=== PATIENT | female | born 1945 | race Caucasian/White ===

== ENCOUNTER 2019-02-21 11:10 | Emergency (ER) | payer MEDICARE, OTHER, SELFPAY ==
[2019-02-21 11:12] VITALS: BP 182/116; PULSE 127; RESP 18; TEMP 36.9; O2SAT 93; BMI 33.3
--- NOTE | 2019-02-21 11:27 | ED.VIS.GEN ---
History of Present Illness Chief Complaint: Lower Extremity Injury Informant: Patient Onset: Today Current Severity: Moderate Maximum Severity: Moderate Narrative: Patient presents after fall at home injuring her right ankle. She states that she was walking the living room when she rolled her right ankle and fell. Air splint was placed by EMS. She denies any other injury from her fall. - Past Medical History (1) Scoliosis Status: Chronic Past Medical History - Allergies and Home Meds Allergies/Adverse Reactions: Allergies ciprofloxacin [From Cipro] Allergy (Verified 02/21/19 11:11) Hives Primary Care Physician: Herve Urrutia [Primary Care Provider] - Review of Systems General: Denies: Chills, Fever Eyes: Denies: Visual changes - bilaterally ENT: Denies: Bilateral ear pain Cardiovascular: Denies: Chest pain Respiratory: Denies: Dyspnea Gastrointestinal: Denies: Abdominal pain Musculoskeletal: Reports: Swelling, Extremity Pain Skin: Denies: Rash, Wounds Allergy: Denies: Uticaria Physical Exam Vital Signs/Narrative: Vital Signs Temp Pulse Resp BP Pulse Ox 02/21/19 11:12 98.5 F 127 H 18 182/116 H 93 Inital Vital Signs reviewed: Yes General: Well nourished, Well developed Head: Normocephalic ENT: Moist mucous membranes Neck: Supple Cardiovascular: Tachycardia Respiratory: No distress, CTA bilaterally Abdomen: Soft, Nontender, Nondistended Extremities: - - Air splint is removed from right leg. There is tenderness to palpation with deformity at the right ankle. No tenderness over the foot itself. Strong distal pulses and can wiggle toes. No tenderness at the knee or hip. Skin: Normal color Neurological: Alert, Oriented x3 Psychological: Normal affect Diagnostic/Tx/Re-eval Impressions RAD/Ankle min 3 Views IMPRESSION: 1. Moderate size acute spiral fracture of the distal one third fibula 2. Partial posterior dislocation of the talus in relation to the tibial plafond 3. Oblique fracture of the posterior tibial malleolus. 4. Old fractures of the medial and lateral malleoli. Electronically Signed: Arsh Sepulveda MD Ankle X-Ray 02/21/19 13:35 IMPRESSION: Reduction of tibiotalar joint dislocation. Mildly reduced distal fibular fracture. Cast. Soft tissues lying. Electronically Signed: Ba Vee MD (Brooks) at 13:52 EST , Service support , 02/21/19 11:50 Ankle min 3 Views [RAD] Stat 02/21/19 13:35 Ankle 2 Views [RAD] Stat Laboratory Results 02/21/19 02/21/19 11:45 11:45 WBC 8.5 RBC 5.17 Hgb 15.0 Hct 45.8 MCV 88.6 MCH 29.0 MCHC 32.8 RDW Std Deviation 46.8 H RDW Coeff of Joselyn 14.5 Plt Count 220 MPV 10.3 Immature Gran % (Auto) 0.200 Neut % (Auto) 69.2 Lymph % (Auto) 20.5 Gulf % (Auto) 8.2 Eos % (Auto) 1.5 Baso % (Auto) 0.4 Absolute Neuts (auto) 5.9 Absolute Lymphs (auto) 1.75 Nucleated RBC % 0 Sodium 139 Potassium 3.4 L Chloride 102 Carbon Dioxide 32.0 Anion Gap 5 BUN 14 Creatinine 0.83 Estim Creat Clear Calc 47.03 Est GFR (MDRD) Af Amer 87 Est GFR (MDRD) Non-Af 72 BUN/Creatinine Ratio 16.9 Glucose 124 H Calcium 8.8 - Medical Decision Making Patient was given morphine and Zofran for pain. X-ray results were discussed with her. She was consented for procedural sedation for reduction and splinting of her right ankle fracture dislocation. Patient was placed on potato chip fryer. Patient received 30 mg of IV propofol. Right ankle was reduced and placed in a posterior splint plus sugar tong. Patient's vital signs remained stable throughout procedure. Postreduction x-rays show good realignment. Patient states that she is not going to be able to tolerate crutches that she has tried to use them in the past. Her daughter was able to bring a wheelchair in and patient will stand to pivot to wheelchair. She does have a walker at home that she can use as well. I advised the patient she cannot bear any weight on this right lower extremity. She has a principal bioinformatics specialist in [place] that she wishes to follow-up with and will call them tomorrow. She will be given a prescription for [place] to help with pain. Procedures - Lower Extremity Splints Lower Extremity Splint: Orthoglass Splint Fabrication: Fabricated Location: Right ED Disposition - Plan for ED Patient: Disposition: Home or Assisted Living Diagnosis: Fracture dislocation of right ankle Instructions: ANKLE DISLOCATION, Reduced, FRACTURE, Ankle (General) Prescriptions: Hydrocodone Bitart/Apap 5-325 [[place] 5MG-325MG] 1 tablet PO Q6H PRN PRN 3 Days #20 tablet PRN Reason: Pain Referrals: Herve Urrutia [Primary Care Provider] - Additional Instructions: Follow-up with your principal bioinformatics specialist as soon as possible. Call them tomorrow morning for an appointment.
--- NOTE | 2019-02-21 11:50 | RAD_ITS ---
STUDY: X-RAY - RIGHT ANKLE REASON FOR EXAM: Female, 73 years old. FALL, PAIN TECHNIQUE: 3 view(s) of the ankle. COMPARISON: None. FINDINGS: A moderate size acute spiral fracture of the distal one third aspect of the fibula is present with mild displacement of the distal fracture fragment laterally. A small oblique place fracture of the posterior aspect of the distal tibia/posterior malleolus is also present. There is also partial posterior dislocation of the talus from its articulation with the tibial plafond. Cortical irregularity and small ossicles are present at the tip of the medial and lateral malleoli compatible with old fractures to these regions. These soft tissues are diffusely swollen. A moderate size plantar calcaneal spur is present. The visualized subtalar, talonavicular, calcaneocuboid and tarsal articulations are normal. RAD/Ankle min 3 Views IMPRESSION: 1. Moderate size acute spiral fracture of the distal one third fibula 2. Partial posterior dislocation of the talus in relation to the tibial plafond 3. Oblique fracture of the posterior tibial malleolus. 4. Old fractures of the medial and lateral malleoli. Electronically Signed: Arsh Sepulveda MD at 13:10 EST , Service support ,
[2019-02-21 11:51] LABS: Absolute Lymphocyte Count 1.75 X10^3/uL (0.83-4.51); Absolute Neutrophil Count 5.9 X10^3/uL (2.0-7.7); Basophil# 0.03 X10^3/uL; Basophil% 0.4 % (0-1); Eosinophil# 0.13 X10^3/uL; Eosinophils% 1.5 % (0-5); Hematocrit 45.8 % (37-47); Lymphocyte # 1.75 X10^3/ul (4.0); Lymphocyte % 20.5 % (19-41); Mean Corp Hgb Conc 32.8 g/dL (32-36); Mean Corpuscular Volume 88.6 fL (81-99); Mean Platelet Vol. 10.3 fl (6.2-12.0); Monocyte% 8.2 % (0-10); NRBC Flagged by Analyzer 0 % (0-5); Neutrophil # 5.91 X10^3/uL (2.7-7.7); Neutrophil % 69.2 % (47-70); Platelet Count 220 K/mm3 (150-450); RBC Distribution Width CV 14.5 % (11.6-14.6); RBC Distribution Width SD 46.8 fl (35.1-43.9); Red Blood Count 5.17 M/mm3 (4.2-5.4); White Blood Count 8.5 K/mm3 (4.4-11.0)
[2019-02-21] MEDS: Ondansetron 4 MG/2 ML Vial IV (12:00)
[2019-02-21] MEDS: Morphine 4 MG/ML Syringe IV (12:00)
[2019-02-21] MEDS: 0.9% Normal Saline 1,000 ML 150 ML IV (12:01)
[2019-02-21 12:03] LABS: Anion Gap 5 (5-15); BUN 14 mg/dL (7-18); BUN/Creat Ratio 16.9 RATIO (10-20); Calcium,Total 8.8 mg/dL (8.5-10.1); Chloride 102 mmol/L (98-107); Creatinine, Serum 0.83 mg/dL (0.55-1.02); EST Glomerular Filtration Rate 72 mL/min (>60); Est Glom Filt Rate - Afr Amer 87 mL/min (>60); Estimated Creatinine Clearance 47.03 ml/min; Glucose 124 mg/dL (74-106); Potassium 3.4 mmol/L (3.5-5.1); Sodium Level 139 mmol/L (136-145)
[2019-02-21 13:18] VITALS: BP 169/130; BP 179/111; PULSE 117; PULSE 120; RESP 18; O2SAT 98; O2SAT 99
[2019-02-21] MEDS: Propofol 200 MG/20 ML Vial IV BOLUS (13:21)
[2019-02-21 13:24] VITALS: BP 149/114; BP 157/104; BP 164/101; BP 180/103; PULSE 111; PULSE 112; PULSE 116; PULSE 117; PULSE 120; RESP 14; RESP 16; RESP 18; O2SAT 100; O2SAT 98; O2SAT 99
--- NOTE | 2019-02-21 13:35 | RAD_ITS ---
STUDY: X-RAY - RIGHT ANKLE REASON FOR EXAM: Female, 73 years old. POST REDUCTION TECHNIQUE: 2 view(s) of the ankle. COMPARISON: Earlier today FINDINGS: Distal fibular fracture is redemonstrated, decreased amount of displacement since the prior study. There is also been reduction of tibiotalar joint dislocation, now grossly aligned. Osseous density adjacent to the distal fibula is stable. Normal visualized talus and calcaneus. The visualized subtalar, talonavicular, calcaneocuboid and tarsal articulations are normal. There is soft tissue swelling. Cast material noted. RAD/Ankle 2 Views IMPRESSION: Reduction of tibiotalar joint dislocation. Mildly reduced distal fibular fracture. Cast. Soft tissues lying. Electronically Signed: Ba Vee MD (Brooks) at 13:52 EST , Service support ,
[2019-02-21 13:42] VITALS: BP 166/118; O2SAT 98
== END 2019-02-21 16:10 | disposition home or self-care (01) ==
PROVIDERS: Emergency Provider Emergency Medicine
DX: S93.04XA Dislocation of right ankle joint, initial encounter (principal); S82.441A Displaced spiral fracture of shaft of right fibula, initial encounter for closed fracture; S82.231A Displaced oblique fracture of shaft of right tibia, initial encounter for closed fracture; S82.51XA Displaced fracture of medial malleolus of right tibia, initial encounter for closed fracture; X50.1XXA Overexertion from prolonged static or awkward postures, initial encounter; Y93.9 Activity, unspecified; Y92.9 Unspecified place or not applicable; M41.9 Scoliosis, unspecified
CPT/HCPCS: 27840; 73600; 73610; 80048; 85025; 96361; 96374; 96375; 99152; 99285; J7030; A4216; J2405

== ENCOUNTER 2019-02-26 20:28 | Emergency (ER) | payer MEDICARE, OTHER, SELFPAY ==
[2019-02-26 20:29] VITALS: BP 158/107; PULSE 118; RESP 18; TEMP 35.6; O2SAT 94; BMI 32.1
--- NOTE | 2019-02-26 22:41 | ED.DCSUM_ITS ---
- ER Visit Summary Date of Service: 02/26/19 Chief Complaint: Right ankle pain and swelling History of Present Illness: The patient is a 73 F who presents with increasing pain and swelling to her right ankle. Patient states she had a splint on her right ankle changed today by her orthopedist. Patient states that she has a history of reaction to a splint in the past and that she is concerned that she is having a reaction to the splint as well. Patient states she has had blisters from a splint in the past. Patient describes her pain as burning. Patient states she is scheduled for surgery next week. Physical Examination: Vital signs are stable. Patient is afebrile. Patient is in no acute distress. Skin is warm and dry. There is some edema and ecchymosis of the right foot and ankle. I do not see any blister formation. The web roll cast padding was and the skin on the dorsal and plantar aspects of the foot was visualized. There is no erythema. There are no vesicles or bullae noted. Sensation was intact to light touch in all digits. Capillary refill was less than 2 seconds in all digits. Emergency Department Course and Treatment: Patient was instructed to keep her ankle elevated which should help with the swelling. This should help prevent blister formation. Patient was instructed to continue her pain medication as prescribed. Patient was instructed to follow-up with her orthopedist as scheduled. Patient understood and was agreeable with the plan. All questions were answered. Disposition: Discharge home Impression: Right ankle swelling This note was generated with [employer] dictation software. It may contain incorrect words, spelling, and punctuation that were not noted in review of the chart prior to signing ED Disposition - Plan for ED Patient: Disposition: Home or Assisted Living Diagnosis: Right ankle swelling Instructions: ED Peripheral Edema, Unilateral Referrals: Herve Urrutia [Primary Care Provider] - 3-5 Days
[2019-02-26 22:56] VITALS: BP 149/94; PULSE 100; RESP 16; TEMP 36.6; O2SAT 98
== END 2019-02-26 23:01 | disposition home or self-care (01) ==
PROVIDERS: Emergency Provider Emergency Medicine
DX: M25.471 Effusion, right ankle (principal); M25.571 Pain in right ankle and joints of right foot; E11.9 Type 2 diabetes mellitus without complications; I10 Essential (primary) hypertension; M41.9 Scoliosis, unspecified; Z79.84 Long term (current) use of oral hypoglycemic drugs; Z79.899 Other long term (current) drug therapy
CPT/HCPCS: 99282

== ENCOUNTER 2019-11-14 13:00 | Outpatient (RCR) | payer MEDICARE, OTHER, SELFPAY ==
--- NOTE | 2019-05-01 11:51 | HP.PTEVAL_ITS ---
Patient's Visit Information GINA KAMARA is a 73 year old F referred to Physical Therapy by KAHLIL GEE with a diagnosis of TRIMALLEOLAR FX RIGHT ANKLE WITH ORIF FEB 28 2019. LUMBAR DDD.. Date of Evaluation: 05/01/19 Physical Therapist: Elena Vargas, PT, Cert MDT - Visit Plan Frequency: 2-3x /Week Duration: 4-6 Weeks Plan: PATIENT IS IN PHYSICAL THERAPY FOR HER BACK AND HER RIGHT ANKLE. *USE GAIT BELT AT ALL TIMES* PATIENT IS VERY AFRAID OF FALLING. HAS NOT BEEN VERY AMBULATORY AT ALL SINCE FALL FEB 21 2019 AND EVEN A MONTH BEFORE THAT DUE TO SEVERE BACK PAIN. GAIT TRAINING STARTING TDWB AND SLOWLY PROGRESSING FROM 10% WEIGHT BEARING TO FULL WEIGHT BEARING IN BOOT SLOWLY OVER 6 WEEKS TOLERATED. AFTER 100% BODYWEIGHT REACHED MAY WEAN FROM POST OF BOOT. CHECK LUMBAR MRI RESULTS AND PHYSICIAN FOLLOW UP RECOMMENDATIONS. POSTURE CORRECTION/S TRENGTHENING, INSTRUCTION IN APPROPRIATE BODY MECHANICS AND ACTIVITY MODIFICATIONS. DLS STARTING WITH A NEUTRAL SPINE PROGRESSING ROM TOLERATED. JOS LE ROM, STRETCHING AND STRENGTHENING. HEP INSTRUCTION. - Subjective Subjective: Work/Leisure: RETIRED. Present symptoms: LOW BACK PAIN. NO RIGHT FOOT PAIN. Present since: CHRONIC LBP. FEB 21 2019 - FALL - RIGHT ANKLE FX. Pain Scale: LBP: WORST - 1/10, LEAST 0/10. RIGHT FOOT AND ANKLE - NO PAIN. Currently: LBP - IMPROVING. Worse: LYING DOWN, STANDING AND WALKING. *MORNINGS ARE THE WORST FOR BACK*. Better: SITTING. Disturbed sleep: NO. Previous history/Previous treatment: TRIED FOOT BRACES TO HELP BACK PAIN IN THE PAST. NO BACK SURGERY. NO BACK INJECTIONS. NO PT. NO CHIROPRACTOR. FAR HER RIGHT ANKLE GOES SHE REPORTS SOME HISTORY OF SPRAINS BUT NOTHERING MAJOR UNTIL NOW. Treatment this episode: PATIENT REPORTS SHE WAS HAVING INCREASED LOW BACK PAIN SO SHE WENT TO THE DOCTOR CAMRON BARRETT AND THEY DID AN X-RAY. DX WITH SCOLIOSIS AND THERAPY WAS PRESCRIBED BUT NOT ABLE TO GET IT STARTED BECAUSE OF FALL FX'ING RIGHT ANKLE THE NEXT DAY. ORIF RIGHT ANKLE FEB 28 2019. NWB UNTIL NOW. STATES DR. PRASHANT CLARK TOLD HER TO STAY NWB UNTIL STARTING PT. Coughing/sneezing/straining: POSITIVE. Gait: NWB RIGHT LE. HAS A SCOOTER BUT HAS ONLY USED IT A LITTLE BIT. MAINLY IN THE W/C. Difficulty initiating urinatin: NO. Accidents: UNREMARKABLE OTHERWISE. Unexplained weight loss: NO. Imaging: LUMBAR X-RAY - SCOLIOSIS - PRETTY SEVERE PER PATIENT REPORT. MRI PENDING TODAY OF LOW BACK. HAD A FOLLOW UP X-RAY OF HER RIGHT ANKLE ABOUT 2 WEEKS AGO AT SURGICAL FOLLOW-UP - PATIENT AND PATIENTS DAUGHTER REPORT THE SURGEON SAID IT IS HEALING WELL. PMH: HTN, PRE-DIABETIC. OTHER: PATIENT LIVES WITH HER . IS NOT IN GOOD HEALTH. DAUGHTERS ARE TAKING TURNS STAYING WITH THEIR PARENTS AND THEY ARE WITH THEM ALMOST 13/09. PATIENTS DAUGHTERS REPORT THAT THEIR MOTHERS PAIN IS ABSOLUTELY TERRIFYING AT TIMES. SHE GETS BENT OVER, HAS TO REACH FOR SUPPORT, YELLS IN PAIN AND THIS IS OUT OF THE ORDINARY FOR THEIR MOM BECAUSE SHE USUALLY HANDLES PAIN VERY WELL. HER BACK HAS BEEN MUCH BETTER SINCE IN THE W/C FOR ANKLE. PATIENT REPORTS HER BACK MRI AND PT FOR HER BACK WAS ORDERED BEFORE SHE FELL AND SHE HAS NOT HAD ANY PHYSICIAN FOLLOW UP FOR HER LOW BACK SINCE THE FALL. - Objective Sitting/Standing Posture: POOR. INCREASED TRUNK FLEXION. SCOLIOSIS. Other Observations: THIS PATIENT WAS BROUGHT BACK TO PT BY HER DAUGHTERS IN HER OWN W/C. UPON TESTING, PATIENT IS ABLE TO TRANSFER INDEP'LY FROM SIT TO STAND AT STANDARD WALKER WITH CUEING TO PUT BREAKS ON AND PUSH UP WITH HANDS INITIALLY MAINTAINING NWB ON RIGHT LE. WITH CUEING SHE PUTS THE RIGHT FOOT DOWN IN THE BOOT AND BEARS SLIGHT WEIGHT ON RIGHT LE WITHOUT C/O PAIN. EDUCATED PATIENT AND FAMILY ON USE OF HOME WEIGHT SCALE TO GET A FEEL FOR ABOUT 10% WEIGHT BEARING INITIALLY. ENCOURAGED PATIENT TO START GETTING UP AND USING SCOOTER MORE OFTEN FOR GENERAL CONDITIONING AND INSTRUCTED IN PWB OF UP TO 10% AT HOME WITH SUPERVISION OF DAUGHTERS AND USE OF GAIT BELT. PATIENT AND DAUGHTERS COMMUNICATE A GOOD UNDERSTANDING. PATIENT JULIANAO'S RIGHT LE TDWB IN CLINIC TODAY WITH STANDARD WALKER IN BOOT WITH GOOD TECHNIQUE WITH CONTACT GUARD AND CUEING. PATIENT FOLLOW S COMMANDS WELL. Motor deficit: RIGHT LE MMT'ING: HIP 3+/5, KNEE EXT 4-/5, KNEE FLEX 4-/5, ANKLE DORSI 2/5, ANKLE PLANTAR FLEX 2/5, INVERSION 2/5, EVERSION 2/5. PATIENT IS ABLE TO ACTIVELY MOVE ALL TOES. LLE: HIP 4/5, KNEE EXT 4/5, KNEE FLEX 4/5, ANKLE 4/5. Sensory deficit: NO. ROM deficit: RIGHT ANKLE AROM DORSIFLEX TO NEUTRAL, PLANTAR FLEX 30 DEG, INVERSION 15 DEG, EVERSION 5 DEG. Reflexes: NT. Lumbar mvmt loss: NT (MRI PENDING TODAY). Core strength: POOR. Palpation: RIGHT ANKLE INCISION LOOKS GOOD WITHOUT ANY SIGNS OF INFECTION. MILD TO MOD RIGHT LOWER LEG, ANKLE AND FOOT EDEMA. OTHER: PATIENT IS ABLE TO DON AND DOFF RIGHT BOOT INDEP'LY. 2 OF PATIENTS DAUGHTERS PRESENT THROUGHOUT EVAL AND HELPFUL WITH HISTORY AND CARE OF PATIENT. TREATMENT: PATIENT WAS SEEN TODAY FOR HEP INSTRUCTION AND GAIT TRAINING TDWB ABOVE. HEP INSTRUCTION: SEATED JOS AROM OF TOES, HEEL/TOE RAISES, LAE'S AND MARCHING X 20 6 TIMES A DAY TOLERATED. - Goals Goal 1:: DECREASE C/O LOW BACK PAIN Goal Time Frame: 4-6 Weeks Goal 2:: IMPROVE STANDING AND WALKING FUNCTION Goal Time Frame: 4-6 Weeks Goal 3:: PATIENT WILL BE INDEP WITH A HEP FOR CONTINUED IMRPOVEMENT ONCE FORMAL PHYSICAL THERPAY CONCLUDES. Goal Time Frame: 4-6 Weeks - Rehabilitation Potential Rehabilitation Potential: Fair - Anticipated Interventions Patient/Client Instruction: Educate patient on: Condition, Plan of Care, Risk Factors, Benefits of Fitness Program For the Purpose of:: To improve self management Therapeutic Exercise to Include: Strength training, Endurance training, Body mechanics, Postural training, Flexibilty training, Gait and locomotor training, Neuromotor development, Active ROM, Dynamic Lumbar Stabilization For the Purpose of:: To decrease pain, To increase ROM, To improve muscle performance and motor function, To increase tolerance to activity/condition/position, To improve ability of physical actions for home/community/work/leisure, To improve gait and locomotor functions Cryotherapy (ice pack, ice massage): Yes Thermo therapy (hot pack): Yes For the Purpose of:: To decrease pain, To decrease swelling/inflammation, To improve nutrient delivery to tissue Thank you for the opportunity to evaluate your patient. For Medicare and Medicare HMO plans, please review the plan of care and approve it. It will need to be FAXED BACK to us at [phone] for Medicare purposes. For Medicare only, by signing this I certify the plan of care. Please let me know if there are questions or concerns regarding this plan of care. Physician Signature: Date:
--- NOTE | 2019-07-23 16:52 | HP.PTREVAL ---
KAHLIL GEE, It has been my pleasure to treat GINA KAMARA over the last 3 visits for TRIMALLEOLAR FX RIGHT ANKLE WITH ORIF FEB 28 2019. LUMBAR DDD.. Please see the progress note below for an update on the physical therapy plan of care! Subjective: PATIENT REPORTS SHE HAS A NEW ORDER FOR HER BACK AND SHE WILL BE SEEING HER ANKLE DOCTOR TOMORROW. SHE REPORTS SHE HAD TO GO BACK TO USING A STANDARD WALKER BECAUSE SHE HAD TO GIVE BACK THE ONE SHE BARROWED WITH WHEELS. WORKING ON GETTING A ROLLATOR. MY BACK HURTS MORE IN THE MORNING WHEN I GET OUT OF BED BUT GETTS BETTER AFTER SITTING 15-30 MINUTES. LATER IN THE DAY MY BACK GETS TIRED AND HURTS. PATIENT REPORTS HER RIGHT LEG HAS GOTTEN STRONGER AND FEELS ALMOST BACK TO NORMAL. STATES SHE DOES HAVE SOME DIFFICULTY BALANCING. STATES THE CAT GOT UNDER HER FEET ON THE PORCH TODAY AND SHE FELL BUT DENIES GETTING INJURED. JUST SOME SCRATCHES ON HER RIGHT ARM. HER DAUGHTER BROUGHT HER TO PT TODAY AND KNOWS ABOUT HER FALL. PATIENT S DAUGHTER DROPPED PATIENT OFF FOR THERAPY AND DID NOT STAY. GETS A LITTLE PAIN IN THE ARCH OF HER RIGHT FOOT. CHEIF COMPLAINT IS LOW BACK WEAKNESS. PATIENT DENIES HAVING AND BACK OR LEG PHYSICIAN RESTRICTIONS. Objective/Function: PATIENT WAS SEEN TODAY FOR RE-ASSESSMENT OF PROGRESS TOWARD THE SET PT GOALS AND THE NEED FOR FURTHER PHYSICAL THERAPY VS READINESS FOR DISCHARGE. UPON EXAM TODAY: Motor deficit: RIGHT LE MMT'ING: HIP 4-/5, KNEE EXT 4/5, KNEE FLEX 4/5, ANKLE DORSI 4-/5, ANKLE PLANTAR FLEX 4-/5. (WEARING HER ANKLE BRACES) LLE: HIP 4/5, KNEE EXT 5/5, KNEE FLEX 5/5, ANKLE 4/5. Sensory deficit: NO. ROM deficit: JOS HIP EXTERNAL ROTATOR TIGHTNESS AND TOEING OUT. Reflexes: NT. Lumbar mvmt loss: FLEX - NIL. EXT - RAUL. RSG - RAUL. LSG - RAUL. Core strength: POOR. Palpation: MILD RIGHT LOWER LEG, ANKLE AND FOOT EDEMA. Plan Plan: ASSESS JOS ANKLE INV/EVERSION STRENGTH AND ROM WITHOUT ANKLE BRACES. PATIENT IS IN PHYSICAL THERAPY FOR HER BACK AND HER RIGHT ANKLE. GAIT TRAINING STARTING TDWB AND SLOWLY PROGRESSING FROM 10% WEIGHT BEARING TO FULL WEIGHT BEARING IN BOOT SLOWLY OVER 6 WEEKS TOLERATED. AFTER 100% BODYWEIGHT REACHED MAY WEAN FROM POST OF BOOT. CHECK LUMBAR MRI RESULTS AND PHYSICIAN FOLLOW UP RECOMMENDATIONS. POSTURE CORRECTION/STRENGTHENING, INSTRUCTION IN APPROPRIATE BODY MECHANICS AND ACTIVITY MODIFICATIONS. DLS STARTING WITH A NEUTRAL SPINE PROGRESSING ROM TOLERATED. JOS LE ROM, STRETCHING AND STRENGTHENING. HEP INSTRUCTION. Goals Goal 1:: DECREASE C/O LOW BACK PAIN Goal Time Frame: 4-6 Weeks Goal Progress: Progressing Goal 2:: IMPROVE STANDING AND WALKING FUNCTION Goal Time Frame: 4-6 Weeks Goal Progress: Progressing Goal 3:: PATIENT WILL BE INDEP WITH A HEP FOR CONTINUED IMRPOVEMENT ONCE FORMAL PHYSICAL THERPAY CONCLUDES. Goal Time Frame: 4-6 Weeks Goal Progress: Progressing Anticipated Interventions Patient/Client Instruction: Educate patient on: Condition, Plan of Care, Risk Factors, Benefits of Fitness Program For the Purpose of:: To improve self management Therapeutic Exercise to Include: Strength training, Endurance training, Body mechanics, Postural training, Flexibilty training, Gait and locomotor training, Neuromotor development, Active ROM, Dynamic Lumbar Stabilization For the Purpose of:: To decrease pain, To increase ROM, To improve muscle performance and motor function, To increase tolerance to activity/condition/position, To improve ability of physical actions for home/community/work/leisure, To improve gait and locomotor functions Cryotherapy (ice pack, ice massage): Yes Thermo therapy (hot pack): Yes For the Purpose of:: To decrease pain, To decrease swelling/inflammation, To improve nutrient delivery to tissue Please do not hesitate to contact me at [phone] by phone or if you have questions or concerns regarding this new plan of care! Sincerely, Elena Vargas, PT, Cert MDT
--- NOTE | 2019-08-31 15:28 | HP.PTREVAL_ITS ---
KAHLIL GEE, It has been my pleasure to treat GINA KAMARA over the last 4 visits for TRIMALLEOLAR FX RIGHT ANKLE WITH ORIF FEB 28 2019. LUMBAR DDD.. Please see the progress note below for an update on the physical therapy plan of care! Subjective: PATIENT REPORTS SHE HAS RECOVERED FROM HER FALL AND HAS HER HUSBANDS SCHEDULED WORKED OUT SO SHE CAN RESUME PT NOW. STATES SHE SAW HER ANKLE SURGEON FOR FOLLOW UP AND SHE HAS BEEN RELEASED. PATIENT REPORTS SHE HAS BEEN REFERRED TO A SPECIALIST FOR HER BACK BUT SHE CAN NOT REMEMBER THEIR NOW. THEY ARE IN [place]. SHE REPORTS SHE HAS NOT SCHEDULED THAT JENNIFER'T YET. PATIENT REPORTS I NOTICE THE PAIN WHEN I FIRST GET UP IN THE MORNING. I SIT ON THE COUCH FOR ABOUT 15 MINUTES THEN I AM ABLE TO GO ABOUT MY DAY PRETTY PAINFREE UNLESS I AM DOING SOMETHING CRAZY. SHE REPORTS HER ANKLE DOESN'T BOTHER HER BUT IT IS A LITTLE SIT. PATIENT REPORTS HER RIGHT ANKLE IS ABOUT 80% BETTER. SHE REPORTS HER BACK IS ABOUT 90% BETTER BUT IF SHE STANDS A LOT IT GETS SORE. Objective/Function: PATIENT WAS SEEN TODAY FOR RE-ASSESSMENT OF PROGRESS TOWARD THE SET PT GOALS AND THE NEED FOR FURTHER PHYSICAL THERAPY VS READINESS FOR DISCHARGE. SHE WAS ALSO SEEN FOR HEP INST AND DID WELL WITH THE EX'S (WRITTEN INSTRUCTIONS GIVEN). UPON EXAM TODAY: Motor deficit: RIGHT LE MMT'ING: HIP 4-/5, KNEE EXT 4/5, KNEE FLEX 4/5, ANKLE DORSI 4-/5, ANKLE PLANTAR FLEX 4-/5. (WEARING HER ANKLE BRACES) LLE: HIP 4/5, KNEE EXT 5/5, KNEE FLEX 5/5, ANKLE 4/5. Sensory deficit: NO. ROM deficit: JOS HIP EXTERNAL ROTATOR TIGHTNESS AND TOEING OUT. Reflexes: NT. Lumbar mvmt loss: FLEX - NIL. EXT - RAUL. RSG - RAUL. LSG - RAUL. Core strength: POOR. Palpation: MILD RIGHT LOWER LEG, ANKLE AND FOOT EDEMA. Plan Plan: PATIENT IS IN PHYSICAL THERAPY FOR HER BACK AND HER RIGHT ANKLE. GAIT TRAINING STARTING TDWB AND SLOWLY PROGRESSING FROM 10% WEIGHT BEARING TO FULL WEIGHT BEARING IN BOOT SLOWLY OVER 6 WEEKS TOLERATED. AFTER 100% BODYWEIGHT REACHED MAY WEAN FROM POST OF BOOT. CHECK LUMBAR MRI RESULTS AND PHYSICIAN FOLLOW UP RECOMMENDATIONS. POSTURE CORRECTION/STRENGTHENING, INSTRUCTION IN APPROPRIATE BODY MECHANICS AND ACTIVITY MODIFICATIONS. DLS STARTING WITH A NEUTRAL SPINE PROGRESSING ROM TOLERATED. JOS LE ROM, STRETCHING AND STRENGTHENING. HEP INSTRUCTION. Goals Goal 1:: DECREASE C/O LOW BACK PAIN Goal Time Frame: 4-6 Weeks Goal Progress: Progressing Goal 2:: IMPROVE STANDING AND WALKING FUNCTION Goal Time Frame: 4-6 Weeks Goal Progress: Progressing Goal 3:: PATIENT WILL BE INDEP WITH A HEP FOR CONTINUED IMRPOVEMENT ONCE FORMAL PHYSICAL THERPAY CONCLUDES. Goal Time Frame: 4-6 Weeks Goal Progress: Progressing Anticipated Interventions Patient/Client Instruction: Educate patient on: Condition, Plan of Care, Risk Factors, Benefits of Fitness Program For the Purpose of:: To improve self management Therapeutic Exercise to Include: Strength training, Endurance training, Body mechanics, Postural training, Flexibilty training, Gait and locomotor training, Neuromotor development, Active ROM, Dynamic Lumbar Stabilization For the Purpose of:: To decrease pain, To increase ROM, To improve muscle performance and motor function, To increase tolerance to activity/condition/position, To improve ability of physical actions for home/community/work/leisure, To improve gait and locomotor functions Cryotherapy (ice pack, ice massage): Yes Thermo therapy (hot pack): Yes For the Purpose of:: To decrease pain, To decrease swelling/inflammation, To improve nutrient delivery to tissue Please do not hesitate to contact me at [phone] by phone or if you have questions or concerns regarding this new plan of care! Sincerely, Elena Vargas, PT, Cert MDT
--- NOTE | 2019-11-07 13:49 | HP.PTREVAL_ITS ---
KAHLIL GEE, It has been my pleasure to treat GINA KAMARA over the last 13 visits for TRIMALLEOLAR FX RIGHT ANKLE WITH ORIF FEB 28 2019. LUMBAR DDD.. Please see the progress note below for an update on the physical therapy plan of care! Subjective: I REALLY NEED TO WORK ON MY BALANCE. PATIENT REPORTS SHE HAD A CONSULT WITH A SPINE SURGEON ABOUT 2 WEEKS AGO WHEN SHE WAS REFERRED TO HIM BY KAHLIL GEE. SHE REPORTS HE TOLD HER TO FINISH HER THERAPY AND THEN THEY WILL CONSIDER SURGERY. PATIENT REPORTS SHE HAS NOT BEEN DOING HER HOME EX PROGRAM SHE SHOULD. STATES SHE IS REALLY DOING A LOT OF RUNNING BETWEEN HER JENNIFER'TS AND HER HUSBANDS. PATIENT REPRORTS HER BALACNE PROBLEMS STARTED AFTER SHE BROKE HER ANKLE. PATIENT REPORTS SHE HASN'T FALLEN IN THE LAST 2 WEEKS OR SO BUT SHE HAS TO BE VERY CAREFUL. PATIENT REPORTS SHE FALLS USUALLY IF SHE IS STANDING AT HOME WITHOUT HOLDING ONTO THE WALKER SO SHE STARTED USING A CANE IN THE HOUSE. BUT IF SHE ISN'T HOLDING ON TO ANYTHING IT DOESN'T TAKE MUCH AT ALL TO GET HER OFF BALANCE CAUSING HER TO FALL. SHE REPORTS SHE HASN'T GOT HURT IN ANY OF THE RECENT FALLS THOUGH. PATIENT REPORTS INTERMITTENT BACK PAIN THAT OCCURS IN THE MORNINGS BUT GOES AWAY AFTER 5 TO 30 MINUTES AFTER SITTING ON COUCH. STATES SHE ISN'T HAVING ANY RIGHT ANKLE PAIN ANY MORE AND HER RIGHT LEG (H/O RIGHT ANKLE FX) IS ACTUALLY THE ONE SHE COUNTS ON NOW BECAUSE SHE TRIPS ON HER LEFT TOES SOMETIMES. Objective/Function: PATIENT WAS SEEN TODAY FOR RE-ASSESSMENT OF PROGRESS TOWARD THE SET PT GOALS AND THE NEED FOR FURTHER PHYSICAL THERAPY VS READINESS FOR DISCHARGE. UPON EXAM TODAY: Motor deficit: RIGHT LE MMT'ING: HIP 4-/5, KNEE EXT 5/5, KNEE FLEX 5/5, ANKLE DORSI 4+/5, ANKLE PLANTAR FLEX 4+/5. LLE: HIP 4/5, KNEE EXT 5/5, KNEE FLEX 5/5, ANKLE 4/5. Sensory deficit: NO. ROM deficit: JOS HIP EXTERNAL ROTATOR TIGHTNESS AND TOEING OUT. Reflexes: NT. Lumbar mvmt loss: FLEX - NIL. EXT - RAUL. RSG - RAUL. LSG - RAUL. Core strength: POOR. Palpation: MILD TENDERNESS OF RIGHT MEDIAL ANKLE REGION. BALANCE: PATIENTS BALANCE IS GOOD WITH HER ROLLATOR BUT POOR WITHOUT AD. Plan Plan: RESUME PT 2X'S A WK X 5 MORE VISITS. HIGH FALL RISK USE GAIT BELT AT ALL TIMES IN THE CLINIC. PLEASE HAVE PATIENT COMPLETE A BACK OSWESTRY AND AN LE FS NEXT VISIT. INCREASE AND ENCOURAGE HEP WITH PIC'S WITH EX'S THAT PATIENT CAN SAFELY DO AT HOME. WE ARE CONTINUEING PT FOR PATIENTS BACK BACK SURGERY IS BEING CONSIDERED BUT TAKE INTO CONSIDERATION RIGHT ANKLE FX FEB 2019. POSTURE CORRECTION/STRENGTHENING, INSTRUCTION IN APPROPRIATE BODY MECHANICS AND ACTIVITY MODIFICATIONS. DLS STARTING WITH A NEUTRAL SPINE. JOS LE ROM, STRETCHING AND STRENGTHENING. HEP. Goals Goal 1:: DECREASE C/O LOW BACK PAIN Goal Time Frame: 4-6 Weeks Goal Progress: Progressing Goal 2:: IMPROVE STANDING AND WALKING FUNCTION Goal Time Frame: 4-6 Weeks Goal Progress: Progressing Goal 3:: PATIENT WILL BE INDEP WITH A HEP FOR CONTINUED IMRPOVEMENT ONCE FORMAL PHYSICAL THERPAY CONCLUDES. Goal Time Frame: 4-6 Weeks Goal Progress: Progressing Anticipated Interventions Patient/Client Instruction: Educate patient on: Condition, Plan of Care, Risk Factors, Benefits of Fitness Program For the Purpose of:: To improve self management Therapeutic Exercise to Include: Strength training, Endurance training, Body mechanics, Postural training, Flexibilty training, Gait and locomotor training, Neuromotor development, Active ROM, Dynamic Lumbar Stabilization For the Purpose of:: To decrease pain, To increase ROM, To improve muscle performance and motor function, To increase tolerance to activity/condition/position, To improve ability of physical actions for home/community/work/leisure, To improve gait and locomotor functions Cryotherapy (ice pack, ice massage): Yes Thermo therapy (hot pack): Yes For the Purpose of:: To decrease pain, To decrease swelling/inflammation, To improve nutrient delivery to tissue Please do not hesitate to contact me at [phone] by phone or if you have questions or concerns regarding this new plan of care! Sincerely, Elena Vargas, PT, Cert MDT
== END 2019-11-14 19:00 | disposition home or self-care (01) ==
LOC: PT 13:00
DX: S82.851D Displaced trimalleolar fracture of right lower leg, subsequent encounter for closed fracture with routine healing (principal); M51.36 Other intervertebral disc degeneration, lumbar region
CPT/HCPCS: 97110; 97116; 97162; 97163; 97164; 97530

== ENCOUNTER 2020-01-04 10:30 | Outpatient (RCR) | payer MEDICARE, OTHER, SELFPAY ==
--- NOTE | 2019-11-30 13:57 | HP.PTREVAL ---
KAHLIL GEE, It has been my pleasure to treat GINA KAMARA over the last 18 visits for . Please see the progress note below for an update on the physical therapy plan of care! Subjective: PATIENT REPORTS SHE CAN SEE SOME IMPROVENTS IN HER BALANCE AND SHE IS HAPPY ABOUT THAT. STATES SHE ISN'T HAVING ANY PAIN RIGHT NOW. REPORTS HER ISN'T FEELING WELL TODAY AND HAD A CHANGE IN HIS DIALYSIS TIME SO HE WILL BE DONE AT 1:15 AND WILL NEED TO WAIT ON HER UNTIL SHE GETS DONE WITH PT. WOULD LIKE TO DECREASE SESSION TODAY IF POSSIBLE. STILL HAVING BACK PAIN ALMOST EVERY MORNING BUT DIDN'T NOTICE ANY THIS MORNING. PATIENT REPORTS SHE HASN'T NOTICED HER BALANCE BEING BIG OF A PROBLEM THE LAST RE-CHECK BUT SHE NOTICES THAT SHE STANDS UP STRAIGHTER WHEN SHE IS AT LEAST USING THE CANE BUT WITHOUT AN ASSISTIVE DEVICE IT IS GETTING HARDER TO STAND UP STRAIGHT. PATIENT REPORTS SHE PLANS TO GET A SECOND OPINION ABOUT BACK SURGERY BEFORE FOLLOWING UP WITH THE LAST SURGEON. Objective/Function: PATIENT WAS SEEN TODAY FOR RE-ASSESSMENT OF PROGRESS TOWARD THE SET PT GOALS AND THE NEED FOR FURTHER PHYSICAL THERAPY VS READINESS FOR DISCHARGE. WOULD RECOMMEND CONTINUEING PT BASED ON PROGRES MADE AND ROOM FOR FURTHER IMPROVEMENT. UPON EXAM TODAY: Motor deficit: RIGHT LE MMT'ING: HIP 4/5, KNEE EXT 5/5, KNEE FLEX 5/5, ANKLE DORSI 5/5, ANKLE PLANTAR FLEX 5/5. LLE: HIP 4/5, KNEE EXT 5/5, KNEE FLEX 5/5, ANKLE 5/5. Sensory deficit: NO. ROM deficit: JOS HIP EXTERNAL ROTATOR TIGHTNESS AND TOEING OUT. Reflexes: NT. Lumbar mvmt loss: FLEX - NIL. EXT - RAUL. RSG - RAUL. LSG - RAUL. Core strength: POOR. Palpation: NO LUMBOSACRAL REGION TENDERNESS TODAY. BALANCE: PATIENTS BALANCE IS GOOD WITH HER ROLLATOR AND FAIR WITH A STRAIGHT CANE BUT POOR WITHOUT AD. ABLE TO SLS ON RIGHT LE X ABOUT 3 SEC TODAY WITHOUT UE ASSIST AND ABOUT 8 SEC ON LLE. Plan Plan: *FALL RISK. USE GAIT BELT. WALK PATIENT IN AND OUT OF CLINIC*. PROGRESS HEP TOLERATED WITH PIC'S. GAIT AND BALANCE TRAINING. CORE STRENGTH AND STABILITY TRAINING/EX. JOS LE ROM, STRETCHING AND STRENGTHENING. Goals Goal 1:: INDEP AND SAFE GAIT ON ALL SURFACES WITH LEAST ASSISTIVE DEVICE Goal Time Frame: 2-4 Weeks Goal Progress: Progressing Goal 2:: IMPROVE STANDING, WALKING, SOCIAL LIFE AND HOMEMAKING FUNCTION. Goal Time Frame: 2-4 Weeks Goal Progress: Progressing Goal 3:: PATIENT WILL BE INDEP WITH A HEP FOR CONTINUED IMPROVEMENT ONCE FORMAL PHYSICAL THERAPY CONCLUDES. Goal Time Frame: 2-4 Weeks Goal Progress: Progressing Anticipated Interventions Please do not hesitate to contact me at [phone] by phone or if you have questions or concerns regarding this new plan of care! Sincerely, Elena Vargas, PT, Cert MDT
--- NOTE | 2019-12-24 11:33 | HP.PTREVAL ---
KAHLIL GEE, It has been my pleasure to treat GINA KAMARA over the last 20 visits for . Please see the progress note below for an update on the physical therapy plan of care! Subjective: PATIENT IMMEDIATELY UPON ARRIVAL STATES SHE ISN'T SURE HOW LONG SHE WILL BE ABLE TO STAY BECAUSE HER IBS IS ACTING UP. PATIENT IS VERY APOLOGETIC ABOUT MISSING JENNIFER'TS AND CHANGING JENNIFER'TS BUT THEY KEEP CHANGING HER HUSBANDS DIALYSIS TIMES. PATIENT REPORTS SHE HAS BEEN DOING A LOT BETTER WITH BALANCE AND SHE IS REAL HAPPY WITH HOW SHE IS PROGRESSING. DOING SOME HOME EX'S WHEN SHE REMEMBERS. STATES SHE IS ON THE ROAD A LOT TO MEDICAL JENNIFER'TS. NO RECENT FALLS! PATIENT REPORTS SHE STILL GETS LOW BACK PAIN WITH STANDING AND WALKING BUT IT IS MUCH BETTER. STATES SHE STILL WANTS TO GET A SECOND OPINION BEFORE HAVING BACK SURGERY BUT SHE HAS NOT SCHEDULED THAT YET. PATIENT REPORTS SOME MORNINGS SHE HAS NO BACK PAIN NOW. Objective/Function: PATIENT WAS SEEN TODAY FOR THER EX AND RE-ASSESSMENT OF PROGRESS TOWARD THE SET PT GOALS AND THE NEED FOR FURTHER PHYSICAL THERAPY VS READINESS FOR DISCHARGE. WOULD RECOMMEND CONTINUEING PT BASED ON PROGRES MADE AND ROOM FOR FURTHER IMPROVEMENT. PATIENT IS AGREEABLE. UPON EXAM TODAY: Motor deficit: RIGHT LE MMT'ING: HIP 4/5, KNEE EXT 5/5, KNEE FLEX 5/5, ANKLE DORSI 5/5, ANKLE PLANTAR FLEX 5/5. LLE: HIP 4/5, KNEE EXT 5/5, KNEE FLEX 5/5, ANKLE 5/5. Sensory deficit: NO. ROM deficit: JOS HIP EXTERNAL ROTATOR TIGHTNESS AND TOEING OUT. Reflexes: NT. Lumbar mvmt loss: FLEX - NIL. EXT - RAUL. RSG - RAUL. LSG - RAUL. PATIENT DENIES PAIN WITH LUMBAR ROM TESTING. Core strength: POOR. Palpation: NO LUMBOSACRAL REGION TENDERNESS TODAY. BALANCE: PATIENTS BALANCE IS GOOD WITH HER ROLLATOR AND SHE IS GOING TO BRING HER CANE WITH HER NEXT VISIT FOR FURTHER TRAINING BECAUSE SHE IS STARTING TO USE IT MORE AND FEEL MORE CONFIDENT WITH IT. PATIENT IS EVEN ABLE TO WALK AROUND THE TREATMENT ROOM TODAY WITH FAIR BALANCE WITHOUT AN ASSISTIVE DEVICE BUT TRUNK FLEXION INCREASES WITHOUT THE WALKER VS WITH WALKER. ABLE TO SLS ON RIGHT LE X ABOUT 8 SEC TODAY WITHOUT UE ASSIST AND ABOUT 15 SEC ON LLE. BALANCE IS IMPROVING. PATIENT ABLE TO TOLERATE THER EX WELL TODAY DESPITE IBS AND WAS HAPPY WITH EX SELECTION FOR TODAY. Plan Plan: *PATIENT HAS NOT FALLEN SINCE FEB 2019. USE GAIT BELT NEEDED. WALK PATIENT IN AND OUT OF CLINIC*. PROGRESS HEP TOLERATED WITH PIC'S. GAIT AND BALANCE TRAINING. CORE STRENGTH AND STABILITY TRAINING/EX. JOS LE ROM, STRETCHING AND STRENGTHENING. Goals Goal 1:: INDEP AND SAFE GAIT ON ALL SURFACES WITH LEAST ASSISTIVE DEVICE Goal Time Frame: 2-4 Weeks Goal Progress: Progressing Goal 2:: IMPROVE STANDING, WALKING, SOCIAL LIFE AND HOMEMAKING FUNCTION. Goal Time Frame: 2-4 Weeks Goal Progress: Progressing Goal 3:: PATIENT WILL BE INDEP WITH A HEP FOR CONTINUED IMPROVEMENT ONCE FORMAL PHYSICAL THERAPY CONCLUDES. Goal Time Frame: 2-4 Weeks Goal Progress: Progressing Anticipated Interventions Please do not hesitate to contact me at [phone] by phone or if you have questions or concerns regarding this new plan of care! Sincerely, Elena Vargas, PT, Cert MDT
--- NOTE | 2020-01-04 12:06 | HP.PTDCSUM ---
It has been my pleasure to treat GINA KAMARA referred by KAHLIL GEE, with the diagnosis of for a total of 24 visit(s). Discharge Date: 01/04/20 Please see the following information for a summary of their discharge status. Subjective: PATIENT REPORTS THAT FIRST THING IN THE MORNING SHE HAS TO USE HER ROLLATOR. SHE ALSO USES IT IF HER BACK IS HURTING OR IF SHE GOES OUT IN THE YARD BUT SHE IS USING HER CANE MORE. PATIENT REPORTS SHE STILL PLANS TO GET A SECOND OPINION ABOUT BACK SURGERY. SHE PLANS TO CALL TO SCHEDULE A CONSULT WITH DR. JOSEPH. % Improvement: 80 Objective/Function: PATIENT WAS SEEN TODAY FOR RE-ASSESSMENT OF PROGRESS TOWARD THE SET PT GOALS AND THE NEED FOR FURTHER PHYSICAL THERAPY VS READINESS FOR DISCHARGE. UPON EXAM TODAY THERE ARE NO SIGNIFICANT CHANGES SINCE LAST RE-CHECK 12/24/19 BUT PATIENT HAS CONTINUED TO TOLERATE AND BENEFIT FROM THER EX WELL. HOWEVER AT THIS POINT PATIENT IS NOT COMFORTABLE CONTINUEING PT BECAUSE NO EVERYONE IS WEARING A MASK AT ALL TIMES IN OUR FACILITY. SHE STATES SHE JUST CAN'T RISK CONTNUING TO COME. Goal 1:: INDEP AND SAFE GAIT ON ALL SURFACES WITH LEAST ASSISTIVE DEVICE Goal Progress: Goal Met Goal 2:: IMPROVE STANDING, WALKING, SOCIAL LIFE AND HOMEMAKING FUNCTION. Goal Progress: Goal Met Goal 3:: PATIENT WILL BE INDEP WITH A HEP FOR CONTINUED IMPROVEMENT ONCE FORMAL PHYSICAL THERAPY CONCLUDES. Goal Progress: Goal Met Plan: D/C DUE TO PATIENT NOT BEING COMFORTABLE CONTINUING DUE TO MASK POLICY. SHE STATES SHE WILL CONTINUE WITH HER HOME EX'S. If there are questions or concerns regarding this patient's physical therapy, please feel free to call me at [phone]. Thank you for the referral of this patient. Sincerely, Elena Vargas, PT, Cert MDT
== END 2020-01-04 19:00 | disposition home or self-care (01) ==
LOC: PT 10:30
DX: M51.36 Other intervertebral disc degeneration, lumbar region (principal); S82.851D Displaced trimalleolar fracture of right lower leg, subsequent encounter for closed fracture with routine healing
CPT/HCPCS: 97110; 97164

== ENCOUNTER 2020-04-21 13:43 | Outpatient (RCR) | payer MEDICARE, SELFPAY | END 2020-04-21 23:59 | LOC: IMMUN 13:43 | PROVIDERS: Visit Provider Family Medicine | DX: Z23 Encounter for immunization (principal) | CPT/HCPCS: 0011A; 0012A ==

== ENCOUNTER → 2020-08-01 10:57 | Outpatient (CLI) | payer MEDICARE, OTHER, SELFPAY ==
--- NOTE | 2020-08-01 11:03 | VDLE_ITS ---
Reason For Study: Pain in left lower leg Procedure LEFT This is a venous duplex using B-mode, color GSV is normal. flow and spectral Doppler. CFV is compressible, spontaneous, phasic, Exam performed in department. competent, and demonstrates normal A preliminary report was called and/or faxed augmentation. to [facility]. FV is compressible, spontaneous, phasic, competent and demonstrates normal augmentation. POP V is compressible, spontaneous, phasic, competent and demonstrates normal augmentation. T/P Trunk is compressible. PTV is compressible. LT PerV is compressible. VL/Venous Duplex US, Unilateral Interpretation Summary Deep veins of the left lower extremity are patent and compressible segmentally. There is no evidence of left lower extremity deep vein thrombosis. Valvular competence appears intac t within the proximal deep venous system on the left . The left great saphenous vein appears patent a nd compressible segmentally. Ordering Physician: CASSANDRA HUIZAR Referring Physician: Herve Urrutia Performed By: Alisha Gupta RVT and Student
== END ==
DX: M79.662 Pain in left lower leg (principal); I83.892 Varicose veins of left lower extremity with other complications
CPT/HCPCS: 93971

== ENCOUNTER → 2021-07-28 10:51 | Outpatient (CLI) | payer MEDICARE, OTHER, SELFPAY ==
--- NOTE | 2021-07-28 11:01 | BD_ITS ---
STUDY: DUAL ENERGY X-RAY ABSORPTIOMETRY / DXA REASON FOR EXAM: Female, 75 years old. [id number]. The patient is postmenopausal. TECHNIQUE: Bone Mineral Density (BMD) measurements of lumbar spine and bilateral hips were obtained. COMPARISON: None. FINDINGS: Lumbar Spine (L1-L4): g/cm2 (1.125) / T-score (1.0) / Z-score (3.4) Findings are suggestive of normal bone density with a low fracture risk. Left Femur Total: g/cm2 (0.724) / T-score (-1.8) / Z-score (0.1) Left Femoral Neck: g/cm2 (0.657) / T-score (-1.7) / Z-score (0.4) Right Femur Total: g/cm2 (0.756) / T-score (-1.5) / Z-score (0.3) Right Femoral Neck: g/cm2 (0.671) / T-score (-1.6) / Z-score (0.5) BD/Dexa Bone Density Study IMPRESSION: The patient is considered osteopenic as outlined below according to World Alfred Organization (WHO) criteria with a moderate fracture risk. Reference Information: The T-score is the number of standard deviations above or below the standard which is normal for young adults at their peak bone mineral density. The World Health Organization (WHO) interprets the T-scores as follows: Above -1 Normal bone density Between -1 and -2.5 Osteopenia Equal to / or below -2.5 Osteoporosis As a practical clinical guideline, osteopenia may be graded as follows: Mild -1 through -1.5 Moderate -1.6 through -2.0 Severe -2.1 through -2.4 The Z-score is the number of standard deviations above or below age-matched controls. A Z-score of less than -1.5 would be considered abnormal. References: 1. NIH Osteoporosis and Related Bone Diseases www osteo.org 2. International Society for Clinical Densitometry www iscd.org 3. National Osteoporosis Foundation www nof.org Electronically Signed: Jeffry Wood MD at 11:11 EDT ,
== END ==
DX: Z78.0 Asymptomatic menopausal state (principal)
CPT/HCPCS: 77080

== ENCOUNTER 2021-09-17 11:00 | Outpatient (RCR) | payer MEDICARE, OTHER, SELFPAY ==
--- NOTE | 2021-05-21 13:35 | HP.PTEVAL ---
Patient's Visit Information GINA KAMARA is a 75 year old F referred to Physical Therapy by Dr. Herve Urrutia MD with a diagnosis of unsteady gait. Date of Evaluation: 05/21/21 Physical Therapist: Arnold Wagner, PT, ATC - Visit Plan Frequency: 2-3x /Week Duration: 4-6 Weeks Plan: Balance and proprio, gait training, B LE strengthening, nustep, and HEP - Subjective Pt reports her 7 mos ago and she is still in the greiving process. Pt notes over this time she has gained about 20 pounds. Pt reports this has caused her to become much less active and weak. Pt also notes she has had several falls, noting she has fallen twice in the last month. Pt reports she lives alone. Pt notes she does have kids that live close and are willing to help at any time. Pt reports she has good sensation in her feet. Pt reports she has stairs at home and is able to negotiate them, but she only uses them when necessary. Pt reports she has used a rollator for approximately 3 years secondary to DDD and LE weakness. Pt is currently not employed. Pt reports she has pain in her R ankle, but she is not sure why. 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 - Pain R ankle Pain Intensity (Out of 10): 1 Pain Intensity Range: 2 - Objective Neuro: B LE sensation is WNL to light touch. B patellar reflex= 2/3. ROM: B LE's are WFL at this time. MMT: B LE's are grossly rated at 4+/5 throughout. FGA: indicating she is a sig fall risk at this time - Balance/Special Test Scores Functional Gait Assessment Score: 15 % Disability: 50.0000 Lower Extremity Functional Score: 37 - Goals Goal 1:: Increase FGA score x 5 points to aid with preventing future falls Goal Time Frame: 4-6 Weeks Goal 2:: Increase B LE strength to 5/5 throughout to aid with increasing tolerance for ambulation Goal Time Frame: 4-6 Weeks Goal 3:: I with HEP Goal Time Frame: 4-6 Weeks - Rehabilitation Potential Physical Therapy Diagnosis: Pt has LE weakness, unsteady gait, and poor balance secondary to debility Rehabilitation Potential: Good - Anticipated Interventions Patient/Client Instruction: Educate patient on: Condition, Plan of Care For the Purpose of:: To improve self management Therapeutic Exercise to Include: Strength training, Endurance training, Balance training, Gait and locomotor training For the Purpose of:: To improve muscle performance and motor function, To increase tolerance to activity/condition/position, To improve ability of physical actions for home/community/work/leisure Thank you for the opportunity to evaluate your patient. For Medicare and Medicare HMO plans, please review the plan of care and approve it. It will need to be FAXED BACK to us at [phone] for Medicare purposes. For Medicare only, by signing this I certify the plan of care. Please let me know if there are questions or concerns regarding this plan of care. Physician Signature: Date:
--- NOTE | 2021-06-25 12:08 | HP.PTREVAL ---
Dr. Herve Urrutia MD, It has been my pleasure to treat GINA KAMARA over the last 7 visits for unsteady gait. Please see the progress note below for an update on the physical therapy plan of care! Subjective: I tripped over the sidewalk today before coming in here Objective/Function: Pt is now I with HEP. MMT: B hip flex, abd, and add= 4+/5 throughout. B knee flex and ext= 5/5j throughout. FGA: 1830 (using single pronged cane). Gait: Pt is able to ambulate 640' with cane and CGAx1 this date. Pt did experience 2 episodes of stumbling but was able to recover I Plan Plan: Balance and proprio, gait training, B LE strengthening, nustep, and HEP Balance/Gait/Functional tests - Balance/Special Test Scores Functional Gait Assessment Score: 18 % Disability: 40.0000 Lower Extremity Functional Score: 42 Goals Goal 1:: Increase FGA score x 5 points to aid with preventing future falls Goal Time Frame: 4-6 Weeks Goal Progress: Progressing Goal 2:: Increase B LE strength to 5/5 throughout to aid with increasing tolerance for ambulation Goal Time Frame: 4-6 Weeks Goal Progress: Progressing Goal 3:: I with HEP Goal Time Frame: 4-6 Weeks Goal Progress: Goal Met Goal 4:: Pt will be able to ambulate 680 feet with LRD and no LOB to aid with community ambulation Goal Progress: New goal Anticipated Interventions Patient/Client Instruction: Educate patient on: Condition, Plan of Care For the Purpose of:: To improve self management Therapeutic Exercise to Include: Strength training, Endurance training, Balance training, Gait and locomotor training For the Purpose of:: To improve muscle performance and motor function, To increase tolerance to activity/condition/position, To improve ability of physical actions for home/community/work/leisure Please do not hesitate to contact me at [phone] by phone or if you have questions or concerns regarding this new plan of care! Sincerely, Arnold Wagner, PT, ATC
--- NOTE | 2021-07-24 13:02 | HP.PTREVAL ---
Dr. Herve Urrutia MD, It has been my pleasure to treat GINA KAMARA over the last 13 visits for unsteady gait. Please see the progress note below for an update on the physical therapy plan of care! Subjective: My balance is still bad. We did some ex's in here last visit that were really challenging. Objective/Function: MMT: B hip flex 4+/5. All other B LE measurements 5/5 throughout. FGA: Performed with standard cane. , indicating pt still has a significant risk of falling. Gait: Pt is able to ambulate 680' with rollator this date. Pt did experience 1 episode of LOB toward end of walk. Pt has shown excellent progress with strengthening, but still remains a fall risk at this time Plan Plan: Focus on balance activity at this time to aid with safe community ambulation Balance/Gait/Functional tests - Balance/Special Test Scores Functional Gait Assessment Score: 18 % Disability: 40.0000 Lower Extremity Functional Score: 41 Goals Goal 1:: Increase FGA score x 5 points to aid with preventing future falls Goal Time Frame: 4-6 Weeks Goal Progress: Progressing Goal 2:: Increase B LE strength to 5/5 throughout to aid with increasing tolerance for ambulation Goal Time Frame: 4-6 Weeks Goal Progress: Progressing Goal 3:: I with HEP Goal Time Frame: 4-6 Weeks Goal Progress: Goal Met Goal 4:: Pt will be able to ambulate 680 feet with LRD and no LOB to aid with community ambulation Goal Progress: New goal Anticipated Interventions Patient/Client Instruction: Educate patient on: Condition, Plan of Care For the Purpose of:: To improve self management Therapeutic Exercise to Include: Strength training, Endurance training, Balance training, Gait and locomotor training For the Purpose of:: To improve muscle performance and motor function, To increase tolerance to activity/condition/position, To improve ability of physical actions for home/community/work/leisure Please do not hesitate to contact me at [phone] by phone or if you have questions or concerns regarding this new plan of care! Sincerely, Arnold Wagner, PT, ATC
--- NOTE | 2021-08-20 12:20 | HP.PTREVAL ---
Dr. Herve Urrutia MD, It has been my pleasure to treat GINA KAMARA over the last 19 visits for unsteady gait. Please see the progress note below for an update on the physical therapy plan of care! Subjective: No pain today. Pt reports she fell yesterday. Pt reports she thought she was getting better until her fall Objective/Function: Pt is able to ambulate 680' with use of cane, but experienced 10+ episodes of foot drag nearly losing balance. B LE strength is 4/5 throughout with he exception of knee ext 4+/5. FGA: 20/30. Pt still is a risk for falling at this time Plan Plan: Focus on balance activity at this time to aid with safe community ambulation Balance/Gait/Functional tests - Balance/Special Test Scores Functional Gait Assessment Score: 20 % Disability: 33.3400 Lower Extremity Functional Score: 38 Goals Goal 1:: Increase FGA score x 5 points to aid with preventing future falls Goal Time Frame: 4-6 Weeks Goal Progress: Goal Met Goal 2:: Increase B LE strength to 5/5 throughout to aid with increasing tolerance for ambulation Goal Time Frame: 4-6 Weeks Goal Progress: Progressing Goal 3:: I with HEP Goal Time Frame: 4-6 Weeks Goal Progress: Goal Met Goal 4:: Pt will be able to ambulate 680 feet with LRD and no LOB to aid with community ambulation Goal Progress: Progressing Goal 5:: Increase FGA x 3 points to return balance back to normal range level Goal Time Frame: 4-6 Weeks Anticipated Interventions Patient/Client Instruction: Educate patient on: Condition, Plan of Care For the Purpose of:: To improve self management Therapeutic Exercise to Include: Strength training, Endurance training, Balance training, Gait and locomotor training For the Purpose of:: To improve muscle performance and motor function, To increase tolerance to activity/condition/position, To improve ability of physical actions for home/community/work/leisure Please do not hesitate to contact me at [phone] by phone or if you have questions or concerns regarding this new plan of care! Sincerely, Arnold Wagner, PT, ATC
== END 2021-09-17 19:00 | disposition home or self-care (01) ==
LOC: PT 11:00
DX: R27.0 Ataxia, unspecified (principal)
CPT/HCPCS: 97110; 97161; 97164